=== PATIENT | male | born 2000 | race Caucasian/White ===

== ENCOUNTER 2021-04-03 12:30 | Emergency (ER) | payer OTHER, SELFPAY ==
--- NOTE | ~2021-04-03 | XR_ITS ---
EXAMINATION: XR foot RT min 3V EXAM DATE: 04/03/2021 14:00 INDICATION: rt lateral foot pain s/p injury 11 days ago. TECHNIQUE: Right foot dorsoplantar, lateral and oblique projections obtained and reviewed. There is no prior study for comparison. FINDINGS: Right metatarsal bones unremarkable. There is an old 4th proximal phalangeal shaft fractur e. There are no acute fractures or dislocations identified. There is no subcutaneous gas. The soft tissue is unremarkable. There are no radiopaque foreign bodies. IMPRESSION: No acute osseous findings. Reviewed, dictated and finalized at location A. ER RO[facility] HELPER IMPRESSION: No acute osseous findings.
[2021-04-03 12:45] VITALS: BP 135/88; PULSE 77; RESP 16; TEMP 36.7; O2SAT 99
--- NOTE | 2021-04-03 13:50 | ED.LOWEXIN ---
HPI - Extremity Injury (Lower) General Chief Complaint: Extremity Injury, Lower Stated Complaint: right foot Time Seen by Provider: 04/03/21 13:45 Source: patient and RN notes reviewed Mode of arrival: ambulatory Limitations: no limitations History of Present Illness HPI Narrative: Patient presents today complaining of right lateral foot pain. Injury occurred 11 days ago at work. He wears steel toed boots and got stuck in the mud. States he injured his foot attempting to get out of deep mud. Denies numbness or tingling. Currently rates his pain 4/10 and has been taking ibuprofen and ice with some relief. States the foot was initially swollen, but the swelling has resolved. MD complaint: foot injury Related Data Home Medications Medication Instructions Recorded Confirmed No Home Medications 04/03/21 04/03/21 Review of Systems Review of Systems: CONSTITUTIONAL: Denies body aches, fever, chills, or sweats. EYES: Denies visual changes, redness, or discharge. ENT: Denies rhinorrhea, congestion, sore throat, or otalgia. CARDIOVASCULAR: Denies chest pain, palpitations, or edema. RESPIRATORY: Denies cough or dyspnea. GASTROINTESTINAL: Denies abdominal pain, nausea, vomiting, or diarrhea. GENITOURINARY: Denies dysuria or hematuria. SKIN: Denies rash, itching, or wounds. MUSCULOSKELETAL: Denies back pain, joint pain, or myalgia.+ Right foot injury NEUROLOGIC: Denies headache, numbness, tingling, or weakness. PSYCH: Denies depression or anxiety. PMFSH Comments At time of signature, I have reviewed and agree with nursing past medical, surgical, social and family history unless otherwise noted. Please see nursing chart for further information. There is no relevant family history pertinent to the presenting complaint Exam Narrative: GENERAL: Well-appearing, well-nourished, and in no acute distress. HEAD: Normocephalic, atraumatic. EYES: EOMI. No redness or drainage. Conjunctivae normal. ENT: Mucous membranes pink and moist. NECK: Normal AROM. CHEST: No respiratory distress. EXTREMITIES: Right foot: Soft tissue tenderness overlying metatarsals 4 and 5. Distal sensation intact. Capillary refill normal. Pedal pulse normal. No edema, ecchymosis, or erythema noted. Full range of motion of the ankle and all toes. SKIN: Warm, dry, no rash. Capillary refill normal. Normal skin turgor. NEURO: No focal deficits. Alert and oriented x3. Gait steady. PSYCH: Normal affect. No signs of depression or anxiety. Course Vital Signs Vital signs: Vital Signs Temperature 98.0 F 04/03/21 12:45 Pulse Rate 77 04/03/21 12:45 Respiratory Rate 16 04/03/21 12:45 Blood Pressure 135/88 04/03/21 12:45 Pulse Oximetry 99 04/03/21 12:45 Temperature 98.0 F 04/03/21 12:45 Pulse Rate 77 04/03/21 12:45 Respiratory Rate 16 04/03/21 12:45 Blood Pressure 135/88 04/03/21 12:45 Pulse Oximetry 99 04/03/21 12:45 Reviewed. Pt has been instructed to follow up with his PCP regarding his elevated blood pressure today. MDM - Extremity Injury (Lower) Differential Diagnosis Differential diagnosis: Likely other (Foot sprain, contusion, fracture) Imaging Data Radiologist's impression: ITS Impressions Foot X-Ray 04/03/21 14:05 IMPRESSION: No acute osseous findings. Critical Care Time Critical Care Time Critical Care Time: No Discharge Plan Discharge Clinical Impression: Foot sprain Qualifiers: Encounter type: initial encounter Laterality: right Qualified Code(s): S93.601A - Unspecified sprain of right foot, initial encounter Patient Disposition: Home, Self-Care Condition: Stable Instructions: Foot Sprain (ED) Additional Instructions: Your x-ray is negative for fracture today. Continue ibuprofen and ice for pain. Follow-up with your employer regarding Workmen's Compensation. Your blood pressure was elevated above 120/80 today at Urgent Care. This puts you above the threshold fo
== END 2021-04-03 14:21 | disposition home or self-care (01) ==
PROVIDERS: Emergency Provider Nurse Practitioner
DX: S93.601A Unspecified sprain of right foot, initial encounter (principal); X58.XXXA Exposure to other specified factors, initial encounter; Y99.0 Civilian activity done for income or pay
CPT/HCPCS: 73630; 99203; G0463